=== PATIENT | male | born 1980 | race American Indian/Alaskan Native ===

== ENCOUNTER 2017-07-11 00:53 | Emergency (ER) | payer SELFPAY ==
[2017-07-11 01:56] LABS: Basophils % (Auto) 0.6 % (0.0-1.8); Eosinophils # (Auto) 0.4 K/mm3 (0.0-0.4); Eosinophils % (Auto) 5.9 % (0.0-4.3); Hematocrit 44.4 % (35.5-45.6); Hemoglobin 14.9 gm/dl (11.8-15.2); Lymphocytes # (Auto) 2.6 K/mm3 (1.2-5.4); Lymphocytes % (Auto) 43.9 % (13.4-35.0); Mean Corpuscular HGB Conc 34 % (32-34); Mean Corpuscular Hemoglobin 27 pg (28-32); Mean Corpuscular Volume 81 fl (84-94); Monocytes # (Auto) 0.7 K/mm3 (0.0-0.8); Monocytes % (Auto) 12.1 % (0.0-7.3); Platelet Count 198 K/mm3 (140-440); Red Blood Count 5.46 M/mm3 (3.65-5.03); Red Cell Distribution Width 14.7 % (13.2-15.2)
[2017-07-11 02:08] LABS: INR 0.94 (0.87-1.13)
[2017-07-11 02:09] LABS: Partial Thromboplastin Time 38.6 Sec. (24.2-36.6); Thrombin Time 16.5 Sec. (15.1-19.6)
[2017-07-11 02:20] LABS: BUN/Creatinine Ratio 11; Blood Urea Nitrogen 9 mg/dL (9-20); Calcium 9.3 mg/dL (8.4-10.2); Hemolysis Index 2
--- NOTE | 2017-07-11 02:37 | Cat Scan Report ---
FINAL REPORT EXAM: CT HEAD/BRAIN WO CON HISTORY: neuro deficits < 6hrs or sx present upon awakening NUMBNESS LEFT LEG AND LEFT HAND TECHNIQUE: Routine axial imaging was obtained of the brain without IV contrast FINDINGS: The ventricular system is appropriate in size and is symmetric. There is no evidence of acute stroke or hemorrhage. The visualized sinuses are clear. The mastoid air cells are well pneumatized. IMPRESSION: Normal exam.
[2017-07-11 04:45] VITALS: BP 154/103
--- NOTE | 2017-07-11 04:50 | Emergency Department Report ---
ED General Adult HPI - General Chief complaint: Neuro Symptoms/Deficit Stated complaint: LT HAND NUMBNESS; THIGH Time Seen by Provider: 07/11/17 04:23 Source: patient Mode of arrival: Ambulatory Limitations: No Limitations - History of Present Illness Initial comments: Patient is a 37-year-old -[place] male who is presenting with 3-4 weeks of numbness in his left hand. Patient states he is in the thumb pointer and middle finger only. Patient states constantly is been going on of time are described. Patient also states he has a history of sciatica is has some left thigh numbness as well. Patient denies any injury or any weakness nausea vomiting diarrhea fevers or injuries at this time. Patient does not have a primary care physician. Severity scale (0 -10): 0 - Related Data Previous Rx's Medication Instructions Recorded Last Taken Type HYDROcodone/APAP 5-325 [[place] 1 each PO Q6HR PRN #14 tablet 07/14/13 Unknown Rx 5/325 mg] Amoxicillin [Trimox CAP] 500 mg PO Q8H #30 capsule 09/26/13 Unknown Rx Ibuprofen [Motrin 800 MG tab] 800 mg PO Q8H #30 tablet 09/26/13 Unknown Rx Methocarbamol [Robaxin TAB] 750 mg PO Q8H PRN #14 tablet 09/26/13 Unknown Rx Ranitidine HCl [Zantac 150 MG TAB] 150 mg PO BID #20 tablet 10/27/15 Unknown Rx Amlodipine Besylate [Norvasc] 5 mg PO DAILY #30 tablet 07/11/17 Unknown Rx Gabapentin [Neurontin] 300 mg PO BID #20 cap 07/11/17 Unknown Rx Allergies Allergy/AdvReac Type Severity Reaction Status Date / Time No Known Allergies Allergy Verified 10/26/15 19:19 ED Review of Systems ROS: Stated complaint: LT HAND NUMBNESS; THIGH Other details as noted in HPI Comment: All other systems reviewed and negative ED Past Medical Hx - Past Medical History Previous Medical History?: Yes Hx GERD: Yes Additional medical history: sciatica. obesity - Surgical History Past Surgical History?: No - Social History Smoking Status: Current Every Day Smoker Substance Use Type: Alcohol - Medications Home Medications: Home Medications Medication Instructions Recorded Confirmed Last Taken Type HYDROcodone/APAP 5-325 [[place] 1 each PO Q6HR PRN #14 tablet 07/14/13 Unknown Rx 5/325 mg] Amoxicillin [Trimox CAP] 500 mg PO Q8H #30 capsule 09/26/13 Unknown Rx Ibuprofen [Motrin 800 MG tab] 800 mg PO Q8H #30 tablet 09/26/13 Unknown Rx Methocarbamol [Robaxin TAB] 750 mg PO Q8H PRN #14 tablet 09/26/13 Unknown Rx Ranitidine HCl [Zantac 150 MG TAB] 150 mg PO BID #20 tablet 10/27/15 Unknown Rx Amlodipine Besylate [Norvasc] 5 mg PO DAILY #30 tablet 07/11/17 Unknown Rx Gabapentin [Neurontin] 300 mg PO BID #20 cap 07/11/17 Unknown Rx ED Physical Exam - General Limitations: No Limitations General appearance: alert, in no apparent distress - Head Head exam: Present: atraumatic, normocephalic - Eye Eye exam: Present: normal appearance - ENT ENT exam: Present: mucous membranes moist - Neck Neck exam: Present: normal inspection - Respiratory Respiratory exam: Present: normal lung sounds bilaterally. Absent: respiratory distress, wheezes, rales, rhonchi - Cardiovascular Cardiovascular Exam: Present: regular rate, normal rhythm. Absent: systolic murmur, diastolic murmur, rubs, gallop - GI/Abdominal GI/Abdominal exam: Present: soft, normal bowel sounds - Rectal Rectal exam: Present: deferred - Extremities Exam Extremities exam: Present: normal inspection - Back Exam Back exam: Present: normal inspection - Neurological Exam Neurological exam: Present: alert, oriented X3 - Psychiatric Psychiatric exam: Present: normal affect, normal mood - Skin Skin exam: Present: warm, dry, intact, normal color. Absent: rash ED Course Vital Signs 07/11/17 07/11/17 01:20 04:44 Temperature 98.2 F 98.2 F Pulse Rate 94 H 88 Respiratory 16 18 Rate Blood Pressure 175/100 Blood Pressure 154/103 [Left] O2 Sat by Pulse 97 98 Oximetry ED Medical Decision Making - Lab Data Result diagrams: 07/11/17 01:43 07/11/17 01:43 - Medical Decision Making 1.. The patient's numbness is most likely multi-factorial. The hand numbness most likely is coming from a carpal tunnel syndrome. 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 Patient will be referred to primary care for further treatment. Patient also has a history of sciatica has some left thigh and leg numbness. There is no swelling or any indication of any infection. For both of the areas of numbness although from different cause above her believe are secondary to nerve dysfunction. Go to start the patient on Neurontin at this time. 2. The patient's does have elevated blood pressure. Patient has no signs of end organ damage at this time. EKG was done at triage shows a sinus rhythm with a rate of 91 normal axis and all intervals no ST segment changes. Patient' s laboratory studies are within normal limits patient has a normal potassium and renal function. We'll start the patient on a low-dose of blood pressure medicine and the patient will be again follow with primary care. Critical care attestation.: If time is entered above; I have spent that time in minutes in the direct care of this critically ill patient, excluding procedure time. ED Disposition Clinical Impression: Hypertensive urgency Hand paresthesia Qualifiers: Laterality: left Qualified Code(s): R20.2 - Paresthesia of skin Sciatica Qualifiers: Laterality: left Qualified Code(s): M54.32 - Sciatica, left side Disposition: DC-01 TO HOME OR SELFCARE Is pt being admited?: No Does the pt Need Aspirin: No Condition: Stable Instructions: Hypertension (ED), Carpal Tunnel Syndrome (ED), Paresthesia (ED) Prescriptions: Amlodipine Besylate [Norvasc] 5 mg PO DAILY #30 tablet Gabapentin [Neurontin] 300 mg PO BID #20 cap Referrals: FELIX MATTSON MD [Staff Physician] - 3-5 Days
== END 2017-07-11 04:59 | disposition home or self-care (01) ==
LOC: ED 00:53
DX: I16.0 Hypertensive urgency (principal); R20.2 Paresthesia of skin; M54.32 Sciatica, left side; K21.9 Gastro-esophageal reflux disease without esophagitis; F17.200 Nicotine dependence, unspecified, uncomplicated
CPT/HCPCS: 36415; 70450; 80048; 84484; 85025; 85610; 85670; 85730; 93005; 93010; 99284